=== PATIENT | female | born 1970 | race Caucasian/White ===

== ENCOUNTER → 2017-02-24 | Outpatient (CLI) | payer OTHER ==
[~2017-02-24] MED LIST: FORTAMET500 MG PO; IBUPROFEN800 MG PO; INVOKANA300 MG PO; NEURONTIN 300300 MG PO; NORCO 10-325 T1 EACH PO; NORCO 5-325 TA1 EACH PO; NOVOLOG 10100 UNITS/ INJ; TRESIBA SC; VICTOZA 1818 MG/3 ML SC; ZESTRIL2.5 MG PO
[2017-02-24 09:33] LABS: HEMOGLOBIN 11.6 gm/dl (12.3-15.3); RED BLOOD COUNT 4.42 M/UL (4.00-5.10); WHITE BLOOD COUNT 8.9 K/UL (4.5-11.0)
[2017-02-24 10:28] LABS: BUN/CREATININE RATIO 26 (0-10)
== END ==
LOC: LAB 08:42
PROVIDERS: Physician Assistant
DX: Z13.220 Encounter for screening for lipoid disorders (principal); E11.9 Type 2 diabetes mellitus without complications; Z02.89 Encounter for other administrative examinations; Z79.899 Other long term (current) drug therapy
CPT/HCPCS: 36415; 80053; 80061; 82043; 82570; 83036; 84439; 84443; 85025

== ENCOUNTER → 2017-05-21 | Outpatient (CLI) | payer OTHER ==
[2017-05-21 10:26] LABS: HEMOGLOBIN 12.1 gm/dl (12.3-15.3); RED BLOOD COUNT 4.56 M/UL (4.00-5.10); WHITE BLOOD COUNT 7.8 K/UL (4.5-11.0)
[2017-05-21 10:46] LABS: BUN/CREATININE RATIO 22 (0-10)
== END ==
LOC: OPSV2 09:17
PROVIDERS: Orthopaedic Surgery
DX: Z01.810 Encounter for preprocedural cardiovascular examination (principal); Z01.812 Encounter for preprocedural laboratory examination; G56.02 Carpal tunnel syndrome, left upper limb
CPT/HCPCS: 36415; 80048; 85027; 93005

== ENCOUNTER → 2021-01-09 | Outpatient (CLI) | payer OTHER ==
[~2021-01-09] MED LIST changes: +ADMELOG SO100 UNIT/1 SC; +ALBUTEROL2.5 MG/3 M INH; +AMITRIPTYLINE100 MG PO; +ATORVASTATIN CA40 MG PO; +BASAGLAR K100 UNIT/1 SC; +CARAFATE1 GM/10 ML PO; +COLACE 100MG C100 MG PO; +DEXTROSE 10% INJ; +FLEXERIL 10 MG10 MG PO; +GABAPENTIN300 MG PO; +GUAIFENESIN-CODE5 ML PO; +HUMULIN R100 UNIT/1 SQ; +HUMULIN R500 UNIT/1 SQ; +KENALOG CREAM 015 GM TOP; +MELOXICAM15 MG PO; +NEURONTIN300 MG PO; +NORCO 7.5-3251 EACH PO; +PROPRANOLOL HCL20 MG PO; +PROTONIX40 M1 PO; +ZANAFLEX4 M1 PO; +ZOFRAN4 MG PO
[2021-01-09 11:51] LABS: HEMOGLOBIN 11.8 gm/dl (12.3-15.3); RED BLOOD COUNT 4.51 M/UL (4.00-5.10); WHITE BLOOD COUNT 6.1 K/UL (4.5-11.0)
[2021-01-09 12:17] LABS: BUN/CREATININE RATIO 23 (0-10)
== END ==
LOC: LAB 10:58
PROVIDERS: Physician Assistant
DX: R19.7 Diarrhea, unspecified (principal); R30.0 Dysuria
CPT/HCPCS: 36415; 80053; 85025

== ENCOUNTER → 2021-01-22 | Outpatient (CLI) | payer OTHER ==
[2021-01-22 13:14] LABS: BUN/CREATININE RATIO 16 (0-10)
== END ==
LOC: LAB 12:05
PROVIDERS: Physician Assistant
DX: E87.6 Hypokalemia (principal)
CPT/HCPCS: 36415; 80048

== ENCOUNTER → 2021-02-12 | Outpatient (CLI) | payer OTHER | LOC: HEART 5 08:22 | DX: R00.0 Tachycardia, unspecified (principal) ==

== ENCOUNTER → 2021-03-14 | Outpatient (CLI) | payer OTHER | LOC: HEART 5 15:22 | DX: R00.0 Tachycardia, unspecified (principal); I51.7 Cardiomegaly; R93.1 Abnormal findings on diagnostic imaging of heart and coronary circulation | CPT/HCPCS: 93306 ==

== ENCOUNTER → 2021-03-26 | Day surgery (SDC) | payer OTHER ==
[2021-03-26 09:28] LABS: BUN/CREATININE RATIO 20 (0-10)
== END | disposition home or self-care (01) ==
LOC: OR 07:30
PROVIDERS: Surgery
DX: L72.0 Epidermal cyst (principal); E78.5 Hyperlipidemia, unspecified; E11.9 Type 2 diabetes mellitus without complications; M19.90 Unspecified osteoarthritis, unspecified site; K21.9 Gastro-esophageal reflux disease without esophagitis; E66.01 Morbid (severe) obesity due to excess calories; M10.9 Gout, unspecified; Z68.41 Body mass index [BMI] 40.0-44.9, adult; Z88.6 Allergy status to analgesic agent; Z79.4 Long term (current) use of insulin; Z79.899 Other long term (current) drug therapy
CPT/HCPCS: 36415; 80048; 82962; J0690; J1100; J2001; J2250; J2405; J2704; J3010; J7030; J7120

== ENCOUNTER 2021-04-02 17:37 | Inpatient (IN) | payer OTHER ==
[~2021-04-02] VITALS: Ht 165.1 cm; Wt 117.9 kg
[~2021-04-02 17:37] MED LIST changes: -DEXTROSE 10% INJ; -HUMULIN R500 UNIT/1 SQ; -KENALOG CREAM 015 GM TOP
[2021-04-02 18:51] LABS: HEMOGLOBIN 9.6 gm/dl (12.3-15.3); RED BLOOD COUNT 4.28 M/UL (4.00-5.10); WHITE BLOOD COUNT 8.5 K/UL (4.5-11.0)
[2021-04-02 19:15] LABS: BUN/CREATININE RATIO 21 (0-10)
[2021-04-03] MEDS ORDERED: KENALOG CREAM 015 GM TOP (11:12)
[2021-04-03] MEDS ORDERED: HUMULIN R500 UNIT/1 SQ (11:13)
[2021-04-04 04:06] LABS: HEMOGLOBIN 9.3 gm/dl (12.3-15.3); RED BLOOD COUNT 4.17 M/UL (4.00-5.10); WHITE BLOOD COUNT 7.1 K/UL (4.5-11.0)
[2021-04-04 04:44] LABS: BUN/CREATININE RATIO 14 (0-10)
--- NOTE | 2021-04-04 23:09 | NUR ---
NOTIFIED DR. POWELL OF CONTINUOUS FLUCTUATIONS WITH BLOOD GLUCOSE AND RECURRENT NEED FOR D50 IVP. AWAITING NEW ORDERS.
[2021-04-05 04:12] LABS: HEMOGLOBIN 9.5 gm/dl (12.3-15.3); RED BLOOD COUNT 4.32 M/UL (4.00-5.10); WHITE BLOOD COUNT 7.2 K/UL (4.5-11.0)
[2021-04-05 04:29] LABS: BUN/CREATININE RATIO 14 (0-10)
[2021-04-06 12:09] LABS: C-PEPTIDE, SERUM 0.2 ng/mL (1.1-4.4); INSULIN >1000.0 uIU/mL (2.6-24.9)
[2021-04-07 05:31] LABS: HEMOGLOBIN 8.5 gm/dl (12.3-15.3); WHITE BLOOD COUNT 8.2 K/UL (4.5-11.0)
[2021-04-07 05:33] LABS: RED BLOOD COUNT 3.74 M/UL (4.00-5.10)
[2021-04-07 06:02] LABS: BUN/CREATININE RATIO 22 (0-10)
[2021-04-08 05:52] LABS: BUN/CREATININE RATIO 16 (0-10)
[2021-04-08 15:09] LABS: BETA-HYDROXYBUTYRATE 0.4 mg/dL (.)
[2021-04-09 05:17] LABS: HEMOGLOBIN 9.1 gm/dl (12.3-15.3); RED BLOOD COUNT 3.93 M/UL (4.00-5.10); WHITE BLOOD COUNT 7.3 K/UL (4.5-11.0)
[2021-04-09 05:18] LABS: BUN/CREATININE RATIO 14 (0-10)
[2021-04-09 17:08] LABS: C-PEPTIDE, SERUM 0.3 ng/mL (1.1-4.4)
[2021-04-10 15:19] LABS: HEMOGLOBIN 9.1 gm/dl (12.3-15.3); RED BLOOD COUNT 3.92 M/UL (4.00-5.10); WHITE BLOOD COUNT 7.5 K/UL (4.5-11.0)
[2021-04-10 15:43] LABS: BUN/CREATININE RATIO 14 (0-10)
[2021-04-11 03:42] LABS: HEMOGLOBIN 8.4 gm/dl (12.3-15.3); RED BLOOD COUNT 3.62 M/UL (4.00-5.10)
[2021-04-11 04:02] LABS: BUN/CREATININE RATIO 17 (0-10)
[2021-04-11] MEDS ORDERED: DEXTROSE 10% INJ (16:11)
[2021-04-12 13:14] LABS: C-PEPTIDE, SERUM <0.1 ng/mL (1.1-4.4); INSULIN >1000.0 uIU/mL (2.6-24.9)
[2021-04-12 20:08] LABS: ACETOHEXAMIDE Negative ug/mL (20-60); CHLORPROPAMIDE Negative ug/mL (75-250); GLIMEPIRIDE Negative ng/mL (80-250); GLIPIZIDE Negative ng/mL (200-1000); GLYBURIDE Negative ng/mL (UP TO 1500); NATEGLINIDE Negative ng/mL (UP TO 10000); REPAGLINIDE Negative ng/mL (UP TO 200); TOLAZAMIDE Negative ug/mL (UP TO 80); TOLBUTAMIDE Negative ug/mL (40-100)
== END 2021-04-11 18:56 | disposition short-term general hospital (02) | DRG 638 ==
LOC: ER1 17:37 → CDU 04-03 03:00 → CCU 04-03 15:59
PROVIDERS: Family Medicine; Internal Medicine; Physician Assistant; ADMIT Internal Medicine
PROC: 02HV33Z Insertion of Infusion Device into Superior Vena Cava, Percutaneous Approach (ICD-10-PCS; principal; 2021-04-09)
DX: E10.649 Type 1 diabetes mellitus with hypoglycemia without coma (principal); F11.20 Opioid dependence, uncomplicated; N39.0 Urinary tract infection, site not specified; E27.1 Primary adrenocortical insufficiency; Z68.41 Body mass index [BMI] 40.0-44.9, adult; D64.9 Anemia, unspecified; G89.29 Other chronic pain; Z20.822 Contact with and (suspected) exposure to COVID-19; I10 Essential (primary) hypertension; B96.20 Unspecified Escherichia coli [E. coli] as the cause of diseases classified elsewhere; E78.5 Hyperlipidemia, unspecified; E66.01 Morbid (severe) obesity due to excess calories; E87.6 Hypokalemia; E10.40 Type 1 diabetes mellitus with diabetic neuropathy, unspecified; Z79.4 Long term (current) use of insulin; Z90.710 Acquired absence of both cervix and uterus; Z90.49 Acquired absence of other specified parts of digestive tract; Z88.5 Allergy status to narcotic agent
CPT/HCPCS: 36415; 71045; 80048; 80053; 81001; 82010; 82024; 82533; 82947; 82962; 83036; 83519; 83605; 83690; 84206; 84439; 84443; 84681; 85025; 85027; 86337; 87040; 87077; 87086; 87186; 96365; 96366; 96374; 96375; 96376; 99285; C1751; G0378; G0481; J0696; J0834; J1610; J1650; J2550; Q9967; U0002

== ENCOUNTER → 2021-12-12 | Outpatient (CLI) | payer OTHER ==
[~2021-12-12] MED LIST changes: +DEXTROSE 10% INJ; +HUMULIN R500 UNIT/1 SQ; +KENALOG CREAM 015 GM TOP
[2021-12-12 17:08] LABS: HEMOGLOBIN 11.3 gm/dl (12.3-15.3); RED BLOOD COUNT 4.2 M/UL (4.00-5.10); WHITE BLOOD COUNT 5.8 K/UL (4.5-11.0)
[2021-12-14 08:12] LABS: A/G RATIO 1.1 (1.2-2.2); ALKALINE PHOSPHATASE, S 83 IU/L (44-121); ALT (SGPT) 6 IU/L (0-32); AST (SGOT) 9 IU/L (0-40); BILIRUBIN, TOTAL <0.2 mg/dL (0.0-1.2); BUN 18 mg/dL (6-24); BUN/CREATININE RATIO 28 (9-23); CALCIUM, SERUM 9.1 mg/dL (8.7-10.2); CARBON DIOXIDE, TOTAL 22 mmol/L (20-29); CHLORIDE, SERUM 101 mmol/L (96-106); CHOLESTEROL, TOTAL 173 mg/dL (100-199); CREATININE, SERUM 0.64 mg/dL (0.57-1.00); EGFR IF AFRICN AM 121 (>59); EGFR IF NONAFRICN AM 105 (>59); GLOBULIN, TOTAL 3.6 g/dL (1.5-4.5); GLUCOSE, SERUM 148 mg/dL (65-99); HDL CHOLESTEROL 47 mg/dL (>39); LDL CHOLESTEROL CALC 91 mg/dL (0-99); LDL/HDL RATIO 1.9 ratio (0.0-3.2); POTASSIUM, SERUM 3.9 mmol/L (3.5-5.2); PROTEIN, TOTAL, SERUM 7.5 g/dL (6.0-8.5); SODIUM, SERUM 138 mmol/L (134-144); T. CHOL/HDL RATIO 3.7 ratio (0.0-4.4); TRIGLYCERIDES 208 mg/dL (0-149)
[2021-12-14 10:14] LABS: CREATININE, URINE 111.1 mg/dL (Not Estab.)
[2021-12-15 04:10] LABS: ESTIM. AVG GLU (EAG) 206 mg/dL (.); HEMOGLOBIN A1C 8.8 % (4.8-5.6)
== END ==
LOC: RAD 16:22
PROVIDERS: Physician Assistant
DX: M79.672 Pain in left foot (principal); E11.65 Type 2 diabetes mellitus with hyperglycemia; E78.5 Hyperlipidemia, unspecified; E55.9 Vitamin D deficiency, unspecified; R53.83 Other fatigue; S93.305A Unspecified dislocation of left foot, initial encounter
CPT/HCPCS: 36415; 73620; 80053; 80061; 82043; 82570; 82607; 83036; 84439; 84443; 85025